=== PATIENT | male | born 1995 | race Caucasian/White ===

== ENCOUNTER 2021-11-18 22:58 | Emergency (ER) | payer MEDICAID ==
[~2021-11-18] VITALS: Ht 165.1 cm; Wt 88.0 kg
[2021-11-18 23:41] VITALS: BP 132/85
[2021-11-19 00:26] LABS: CLARITY URINE CLEAR (CLEAR); COLOR URINE YELLOW (YELLOW); PH URINE 6.5 (4.5-8.0)
[2021-11-19 00:27] LABS: KETONES URINE NEGATIVE (NEGATIVE); LEUKOCYTE ESTERASE URINE 1+ (NEGATIVE); NITRITE URINE NEGATIVE (NEGATIVE); OCCULT BLOOD URINE NEGATIVE (NEGATIVE); PROTEIN URINE NEGATIVE (NEGATIVE)
[2021-11-19] MEDS ORDERED: CLOT15CR27 TP (01:50)
[2021-11-19] MEDS ORDERED: CEFP200T13 MT (01:50)
[2021-11-22 04:07] LABS: NEISSERIA GONORRHOEAE NAA Negative (Negative)
== END 2021-11-19 02:19 | disposition home or self-care (01) ==
LOC: ER 22:58
DX: B35.6 Tinea cruris (principal); N39.0 Urinary tract infection, site not specified
CPT/HCPCS: 82962; 87491; 87591; 99283

== ENCOUNTER 2021-12-05 17:41 | Emergency (ER) | payer MEDICAID ==
[~2021-12-05] VITALS: Ht 165.1 cm; Wt 88.0 kg
[~2021-12-05 17:41] MED LIST: CEFP200T13 MT; CLOT15CR27 TP
[2021-12-05 17:46] VITALS: BP 147/87
[2021-12-05] MEDS ORDERED: DOXY100C5 MT (18:45)
== END 2021-12-05 20:13 | disposition home or self-care (01) ==
LOC: ER 17:41
DX: N34.2 Other urethritis (principal)
CPT/HCPCS: 99283; Z7610